=== PATIENT | female | born 1990 | race Caucasian/White ===

== ENCOUNTER 2016-11-02 23:16 | Emergency (ER) | payer OTHER ==
--- NOTE | 2016-11-03 00:33 | ED Physician Documentation ---
PD HPI NVD - Stated complaint Stated Complaint: ABD PX,VOMITING - Chief complaint Chief Complaint: Abd Pain - History obtained from History obtained from: Patient - History of Present Illness Timing - onset: How many hours ago (3-4) Timing - duration: Hours (3-4) Timing - details: Abrupt onset, Still present Associated symptoms: Abdominal pain (cramping mid abd), Loss of appetite. No: Fever, Chest pain, Hematemesis, Dizzy Contributing factors: Bad food (ate some leftovers few hours earlier and feels it is related to that.). No: Sick contact, Travel, Recent antibiotics Improved by: No: Vomiting Worsened by: Eating Similar symptoms before: Has not had sx before Recently seen: Not recently seen Review of Systems Constitutional: denies: Fever, Chills, Myalgias Nose: denies: Rhinorrhea / runny nose, Congestion Throat: denies: Sore throat Cardiac: denies: Chest pain / pressure Respiratory: denies: Cough GI: reports: Abdominal Pain, Nausea, Vomiting, Diarrhea. denies: Abdominal Swelling, Constipation, Hematemesis, Bloody / black stool : denies: Dysuria, Frequency Skin: denies: Rash, Lesions Neurologic: reports: Generalized weakness. denies: Focal weakness, Numbness, Difficulty speaking, Near syncope, Altered mental status, Headache PD PAST MEDICAL HISTORY - Past Surgical History Past Surgical History: Yes /[employer]: Oophrectomy - Present Medications Home Medications: Ambulatory Orders Medication Instructions Recorded Confirmed Hydrocodone/Acetaminophen 1 - 2 each PO Q6H PRN #15 tablet 06/22/14 [Hydrocodon-Acetaminophen 5-325] Ondansetron Odt [Zofran] 4 mg TL Q6H PRN 06/22/14 06/22/14 Ondansetron Odt [Zofran] 4 mg TL Q6H PRN #10 tablet 06/22/14 Diphenoxylate/Atropine [Lomotil] 1 each PO QID PRN #15 tablet 11/03/16 Ondansetron Odt [Zofran] 4 mg TL Q6H PRN #10 tablet 11/03/16 - Allergies Allergies/Adverse Reactions: Allergies Allergy/AdvReac Type Severity Reaction Status Date / Time walnut Allergy Hives Verified 11/02/16 23:33 - Social History Does the pt smoke?: No Smoking Status: Never smoker Does the pt drink ETOH?: Yes Does the pt have substance abuse?: No - Immunizations Immunizations are current?: Yes - POLST Patient has POLST: No PD ED PE NORMAL - Vitals Vital signs reviewed: Yes - General General: Alert and oriented X 3, Well developed/nourished - HEENT HEENT: PERRL (nonicteric), Pharynx benign - Neck Neck: Supple, no meningeal sign, No adenopathy - Cardiac Cardiac: RRR, No murmur - Respiratory Respiratory: Clear bilaterally - Abdomen Abdomen: Normal bowel sounds, Soft, Non distended, No organomegaly, Other (mild tender epigastric and periumbilical without guarding; no percussion nor rebound tenderness. ) - Female Female : Deferred - Rectal Rectal: Deferred - Back Back: No CVA TTP - Derm Derm: Normal color, Warm and dry - Neuro Neuro: Alert and oriented X 3, No motor deficit, Normal speech Results - Vitals Vitals: Vital Signs - 24 hr 11/02/16 11/03/16 23:31 01:48 Temperature 36.7 C 36.7 C Heart Rate 70 82 Respiratory 16 15 Rate Blood Pressure 129/82 H 119/70 O2 Saturation 98 100 Oxygen O2 Source Room air PD MEDICAL DECISION MAKING - ED course Complexity details: re-evaluated patient (less nauseated with meds here. Took antidiarrheal. Feels okay going home with started Zofran PRN. ), considered differential (likely food related or viral GE, but did discuss with her to be wary of worsening or not improved as could be at time an early presentation of other process such as appendix. ), d/w patient Departure - Departure Disposition: 01 Home, Self Care Clinical Impression: Nausea vomiting and diarrhea Condition: Stable Record reviewed to determine appropriate education?: Yes Instructions: ED Diet Vomiting Diarrhea Follow-Up: Tello Verduzco MD [Primary Care Provider] - Prescriptions: Diphenoxylate/Atropine [Lomotil] 1 each PO QID PRN #15 tablet PRN Reason: Diarrhea Ondansetron Odt [Zofran] 4 mg TL Q6H PRN #10 tablet PRN Reason: Nausea / Vomiting Comments: Current fluids initially and progress as able. For food initially have simple carbohydrates and starches such as rice breads and cereals. Progress as able after a day. Rest for 1-2 days. Recheck if not improved over the next 12-24 hours. Ondansetron if needed for nausea and vomiting. Lomotil as needed for diarrhea. This is most likely a viral illness or food poisoning. Both of these are typically self-limited and improve after 12-24 hours. Recheck it if it has not done so or if other symptoms develop. Forms: Activity restrictions Discharge Date/Time: 11/03/16 02:00
[2016-11-03] MEDS ORDERED: DIPHENOX/ATROPINE 2.5/0.025 MG TABLET PO STA (00:48)
[2016-11-03] MEDS ORDERED: ONDANSETRON ODT 4 MG TABLET TL STA (00:48)
[2016-11-03] MEDS ORDERED: DIPHENOX/ATROPINE 2.5/0.025 MG TABLET PO ONE (01:01)
[2016-11-03] MEDS ORDERED: ONDANSETRON ODT 4 MG TABLET ONE (01:01)
[2016-11-03] MEDS ORDERED: ONDANSETRON ODT 4 MG Prepack 2 TL PRN (01:40)
[2016-11-03 01:49] VITALS: BP 119/70
[2016-11-03] MEDS ORDERED: ONDANSETRON ODT 4 MG Prepack 2 TL ONE (01:49)
== END 2016-11-03 02:00 | disposition home or self-care (01) ==
LOC: ED 23:16
DX: R11.2 Nausea with vomiting, unspecified (principal); R19.7 Diarrhea, unspecified
CPT/HCPCS: 99283; 99284; A9270; Q0162